=== PATIENT | female | born 1985 | race African-American/Black ===

== ENCOUNTER 2018-03-20 11:05 | Emergency (ER) | payer SELFPAY ==
[2018-03-20] MEDS: PROMETHAZINE IM 25 MG/ML VIAL IM (11:56)
[2018-03-20] MEDS: HYDROmorphone 2 MG/ML VIAL IM (11:57)
== END 2018-03-20 13:27 | disposition home or self-care (01) ==
LOC: ER 11:05
DX: R06.00 Dyspnea, unspecified (principal); F41.9 Anxiety disorder, unspecified; D57.1 Sickle-cell disease without crisis; G89.29 Other chronic pain; I50.9 Heart failure, unspecified; Z79.891 Long term (current) use of opiate analgesic; Z79.899 Other long term (current) drug therapy; Z88.6 Allergy status to analgesic agent; Z91.041 Radiographic dye allergy status
CPT/HCPCS: 71045; 93005; 96372; 99284; J1170; J2550